=== PATIENT | female | born 1975 | race Caucasian/White ===

== ENCOUNTER 2018-11-19 10:01 | Day surgery (SDC) | payer OTHER ==
[~2018-11-19] VITALS: Ht 193 cm; Wt 67.1 kg
[~2018-11-19 10:01] MED LIST: AUGM875T28 PO; CIPR-249 PO; FLAG500T PO; LR 1,000 ML IV ONE; ZOFR4TAB14 PO; cefoTEtan DISODIUM 2 GM in D5W MINI-BAG PLUS 50 ML IV ONE; depo provera IM
[2018-11-19 11:26] LABS: URINE PREG TEST NEGATIVE (NEGATIVE)
[2018-11-19] MEDS ORDERED: BUPIVACAINE HCL 0.25% 30 ML VIAL As Ordered ONE (11:29)
[2018-11-19] MEDS ORDERED: PROPOFOL 200 MG/20 ML VIAL As Ordered ONE ×2 (11:39→13:13)
[2018-11-19] MEDS ORDERED: fentaNYL 100 MCG/2 ML INJECTION (J3010) As Ordered ONE ×2 (11:39→13:46)
[2018-11-19] MEDS ORDERED: LIDOCAINE 2% INJ 100 MG/5 ML SDV (FOR ANES.) As Ordered ONE (11:39)
[2018-11-19] MEDS ORDERED: ONDANSETRON 4MG/2ML VIAL (J2405) As Ordered ONE ×2 (11:39→13:45)
[2018-11-19] MEDS ORDERED: ROCURONIUM BROMIDE 50 MG/5 ML VIAL As Ordered ONE (11:39)
[2018-11-19] MEDS ORDERED: dexameTHASONE 4 MG/ML 1ML VIAL (J1100) As Ordered ONE ×2 (11:39→12:06)
[2018-11-19] MEDS ORDERED: MIDAZOLAM INJ 2 MG/2 ML VIAL (J2250) As Ordered ONE (11:39)
[2018-11-19] MEDS ORDERED: fentaNYL 250 MCG/5 ML INJECTION (J3010) As Ordered ONE (12:09)
[2018-11-19] MEDS ORDERED: KETOROLAC 60 MG/2 ML VIAL (J1885) As Ordered ONE (12:23)
[2018-11-19] MEDS ORDERED: NEOSTIGMINE 10 MG/10 ML VIAL (J2710) As Ordered ONE (12:41)
[2018-11-19] MEDS ORDERED: GLYCOPYRROLATE INJ 0.2 MG/ML 2 ML VIAL As Ordered ONE ×2 (12:41→12:42)
[2018-11-19] MEDS ORDERED: PHENYLephrine HCL 500 MCG/5 ML (100MCG/ML) SYRINGE (J2370) As Ordered ONE (12:43)
[2018-11-19] MEDS ORDERED: PERCOCET 5MG/325MG TAB As Ordered ONE (13:46)
[2018-11-19] MEDS ORDERED: HYDROMORPHONE HCL 0.5 MG/ 0.5 ML SYRINGE (J1170 PER 1) As Ordered ONE (13:46)
[2018-11-19] MEDS: PERCOCET 5MG/325MG TAB PO PRN ×2 (13:50→14:20)
[2018-11-19] MEDS: HYDROMORPHONE HCL 0.5 MG/ 0.5 ML SYRINGE (J1170 PER 1) IV PRN ×5 (13:50→14:10)
[2018-11-19] MEDS ORDERED: ACETAMINOPHEN TAB 650MG DOSE (2X325MG) PO PRN (14:00)
[2018-11-19] MEDS ORDERED: ONDANSETRON 4MG/2ML VIAL (J2405) IV PRN (14:00)
[2018-11-19] MEDS ORDERED: IBUPROFEN 400 MG TAB PO PRN ×2 (14:00→17:00)
[2018-11-19] MEDS ORDERED: LR 1,000 ML IV SCH (14:00)
[2018-11-19] MEDS: fentaNYL 100 MCG/2 ML INJECTION (J3010) IV PRN ×4 (14:15→14:30)
[2018-11-19 15:36] VITALS: BP 115/88
[2018-11-19] MEDS ORDERED: NORCOTAB PO (16:33)
[2018-11-19] MEDS ORDERED: PERCOCET PO (17:54)
--- NOTE | 2018-11-19 20:54 | RO ---
DATE OF PROCEDURE: 11/19/2018 PREOPERATIVE DIAGNOSIS: Cholelithiasis with recent acute cholecystitis. POSTOPERATIVE DIAGNOSIS: Cholelithiasis with recent acute cholecystitis. PROCEDURE PERFORMED: Laparoscopic cholecystectomy. SURGEON: Dr. Afshin Keyes [employer] MANAGER: ANESTHESIA: General. INDICATIONS FOR PROCEDURE: The patient is a 43-year-old woman who was seen in the hospital approximately 6 weeks ago with right upper quadrant pain with a markedly thickened gallbladder by ultrasound. She was started on treatment but left the hospital the next today after reporting that she felt much better. She was seen subsequently in the emergency department and started on some additional antibiotics. She now presents for a laparoscopic cholecystectomy for cholelithiasis. DESCRIPTION OF PROCEDURE: The patient was placed under general endotracheal anesthesia. She was placed supine on the operating table. The patient's abdomen was prepped and draped in sterile fashion. 0.25% Marcaine was infiltrated at the trocar sites as needed. A short incision was made in the left upper quadrant and a Veress needle was inserted. After a positive hanging drop test, the abdomen was insufflated with carbon dioxide gas. A 5 mm port was placed over a 5 mm scope and this was advanced through the abdominal wall without difficulty. Insufflation continued and the laparoscope was placed. Inspection revealed a normal appearing liver. The gallbladder was perhaps mildly distended. There appeared to be some mild erythema of the fundus with an interesting angulated configuration to the fundus as if it had a fold or a bend in it. The visualized portions of the small and large bowel and stomach were normal. An 11 mm trocar was placed just above the umbilicus and two 5 mm trocars were placed in the right upper quadrant. The gallbladder was grasped and elevated. There were some filmy adhesions to the omentum. The patient was tilted to a reverse Trendelenburg position and rolled slightly to the left. The adhesions were divided using the hook cautery. The peritoneum around the gallbladder neck was opened and dissection proceeded. The cystic duct was clearly identified and was doubly clipped with hemoclips and divided. The cholecystic artery was prominent and was clearly dissected free circumferentially and then doubly clipped and divided. The gallbladder was dissected free from the gallbladder bed using the spatula cautery. The gallbladder was not perforated in the course of dissection. The gallbladder was placed in an Endopouch. The right upper quadrant was irrigated and inspected. There was no evidence of bleeding or bile leak. The patient was returned to a flat position. The abdomen was deflated and the trocars were removed. The gallbladder was recovered through the Christie site, which necessitated extending the fascial and skin incisions slightly because of two large stones within the gallbladder. This was sent for permanent pathology. The fascia at the supraumbilical site was closed with interrupted simple sutures of #2-0 Vicryl. Skin incisions were all closed with buried #5-0 Vicryl and Steri-Strips. Light dressings were applied. The patient tolerated the procedure well. She was awakened in the operating room, extubated and moved to the recovery room in stable condition. BETO
== END 2018-11-19 15:51 | disposition home or self-care (01) ==
LOC: M SDC 10:01
PROVIDERS: ATTEND Surgery
DX: K80.18 Calculus of gallbladder with other cholecystitis without obstruction (principal); F17.210 Nicotine dependence, cigarettes, uncomplicated
CPT/HCPCS: 47562; 84703; 88304; J1100; J1885; J2250; J2370; J2405; J2710; J3010

== ENCOUNTER → 2019-04-15 | Outpatient (REF) | payer OTHER ==
[~2019-04-15] MED LIST changes: +HYDR-3715 PO; -LR 1,000 ML IV ONE; +PERCOCET PO; -cefoTEtan DISODIUM 2 GM in D5W MINI-BAG PLUS 50 ML IV ONE
== END ==
LOC: M SFHCLERA 19:32
PROVIDERS: ATTEND Physician Assistant
DX: R50.9 Fever, unspecified (principal)

== ENCOUNTER → 2020-02-10 | Outpatient (CLI) | payer OTHER ==
--- NOTE | 2020-02-10 14:00 | REP ---
Left hand series: Five views. History: Injury left hand and thumb. Findings: By views of the left hand demonstrate overall normal mineralization. There is mild osteoarthritis at the first carpometacarpal articulation. There is mild spurring at the DIP joint of the index finger. No fracture or subluxation is seen. Impression: No fracture noted. Electronically Signed by Carlos Enrique Dsouza MD 02/10/2020 01:51 P
== END ==
LOC: M LRY 13:34
PROVIDERS: ATTEND Physician Assistant
DX: S69.92XA Unspecified injury of left wrist, hand and finger(s), initial encounter (principal); W18.30XA Fall on same level, unspecified, initial encounter; Y92.9 Unspecified place or not applicable